=== PATIENT | female | born 1985 | race Caucasian/White ===

== ENCOUNTER 2019-03-01 10:11 | Day surgery (SDC) | payer MEDICAID, OTHER ==
[2019-02-26 17:56] VITALS: BMI 18.3
[~2019-03-01] VITALS: Ht 165.1 cm; Wt 54.7 kg
[2019-03-01] VITALS (14 sets, daily range): BP systolic 103–129; BP diastolic 68–84; PULSE 72–91; RESP 11–20; Ht 165.1 cm; Wt 54.7 kg
[2019-03-01] MEDS ORDERED: LACTATED RINGER'S 1,000 ML IV SCH (11:30)
[2019-03-01] MEDS ORDERED: ROCURONIUM 50 MG INJ ONE ×2 (11:35→13:27)
[2019-03-01] MEDS ORDERED: DESFLURANE 15 MIN ONE (11:35)
[2019-03-01] MEDS ORDERED: CEFAZOLIN 1 GM INJ ONE (11:35)
[2019-03-01] MEDS ORDERED: MIDAZOLAM 1 MG/ML 2 ML INJ ONE (11:36)
[2019-03-01] MEDS ORDERED: SUGAMMADEX SODIUM 200 MG/2 ML VIAL IV ONE (11:36)
[2019-03-01] MEDS ORDERED: FENTAnyl 50 MCG/ML VIAL ONE ×2 (11:36→12:22)
[2019-03-01] MEDS ORDERED: METOCLOPRAMIDE 10 MG INJ ONE (11:36)
[2019-03-01] MEDS ORDERED: DEXAMETHASONE 4 MG/ML 5 ML INJ ONE (11:39)
[2019-03-01] MEDS ORDERED: ONDANSETRON 4 MG INJ ONE (11:39)
[2019-03-01] MEDS ORDERED: PROCHLORPERAZINE 10 MG INJ IV PRN (12:00)
[2019-03-01] MEDS ORDERED: MEPERIDINE 25 MG INJ IV PRN (12:00)
[2019-03-01] MEDS ORDERED: HYDROmorphONE 1 MG/5 ML IV SYRINGE IV PRN (12:00)
[2019-03-01] MEDS ORDERED: FENTAnyl 50 MCG/ML VIAL IV PRN (12:00)
[2019-03-01] MEDS ORDERED: ONDANSETRON 4 MG INJ IV PRN (12:00)
[2019-03-01] MEDS ORDERED: OXYCODONE/ACETAMINOPHEN (5/325) TAB PO PRN (12:00)
[2019-03-01] MEDS ORDERED: PROPOFOL 20 ML ONE (13:27)
[2019-03-01] MEDS ORDERED: LIDOCAINE 2% (SDV) 5 ML INJ ONE (13:28)
== END 2019-03-01 15:15 | disposition home or self-care (01) ==
LOC: SUR 10:11 → SDS 10:11 → SUR 15:15
PROVIDERS: ATTEND Obstetrics & Gynecology
DX: Z30.2 Encounter for sterilization (principal)
CPT/HCPCS: 58670; 84702; 84703; 85025; 86850; 86900; 86901; J0690; J1100; J1170; J2250; J2405; J2765; J3010; Z7512; Z7610